=== PATIENT | female | born 2005 | race Caucasian/White ===

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

== ENCOUNTER → 2023-02-03 | Outpatient (CLI) | payer OTHER ==
[~2023-02-03] MED LIST changes: +HYDHCL25 PO; +PRED10 PO
[2023-02-03 14:56] LABS: Protein, Urine Random 59.9 mg/dL (0.0-11.9); Protein/Creat Ratio, Ur Random 0.2
== END | disposition home or self-care (01) ==
LOC: LAB 12:00 → LAB SHORT 12:00
PROVIDERS: Family Medicine
DX: O09.893 Supervision of other high risk pregnancies, third trimester (principal)
CPT/HCPCS: 82570; 84156; 87081; 87086; 87150

== ENCOUNTER 2023-02-10 06:36 | Inpatient (IN) | payer OTHER ==
[~2023-02-10] VITALS: Ht 175.3 cm; Wt 92.7 kg
[2023-02-10] VITALS (35 sets, daily range): BP systolic 98–164; BP diastolic 57–103
[2023-02-10 09:38] LABS: BASOPHILS ABSOLUTE AUTO 0.04 K/mm3 (0.00-0.23); BASOPHILS PERCENT AUTO 0 % (0-2); EOSINOPHILS ABSOLUTE AUTO 0.02 K/mm3 (0.00-0.68); EOSINOPHILS PERCENT AUTO 0 % (0-6); Hematocrit 36.7 % (33.0-51.0); Hemoglobin 12.8 g/dL (11.5-16.0); IMMATURE GRAN ABSOLUTE AUTO 0.19 K/mm3 (0.00-0.10); IMMATURE GRAN PERCENT AUTO 1 % (0-1); LYMPHOCYTES ABSOLUTE AUTO 1.36 K/mm3 (0.84-5.20); LYMPHOCYTES PERCENT AUTO 8 % (21-46); MONOCYTES ABSOLUTE AUTO 0.93 K/mm3 (0.16-1.47); MONOCYTES PERCENT AUTO 6 % (4-13); Mean Corpuscular HGB 30.9 pg (26.0-34.0); Mean Corpuscular HGB Conc 34.9 g/dL (31.5-36.5); Mean Corpuscular Volume 89 fL (80-100); NEUTROPHILS ABSOLUTE AUTO 14.06 K/mm3 (1.96-9.15); NEUTROPHILS PERCENT AUTO 85 % (41-73); Platelet Count 250 K/mm3 (150-400); RDW Coefficient Variation 13.4 % (11.7-14.2); RDW Standard Deviation 43.7 fL (35.1-46.3); Red Blood Cell Count 4.14 M/mm3 (3.80-5.20)
[2023-02-10] MEDS ORDERED: ASPIR 8181 M1 PO (09:49)
[2023-02-10] MEDS ORDERED: SERT100 PO (09:49)
[2023-02-10] MEDS ORDERED: PRENATAL TABLE1 EAC2 PO (09:49)
--- NOTE | 2023-02-10 10:00 | NUR ---
ADOPTION- AT THIS TIME THIS IS PLANNED FOR AN OPEN ADOPTION. ADOPTIVE PARENTS ARE BOTH ER DOCTORS FROM [place] AND ON THEIR WAY. PT STEP MOTHER IS HER SUPPORT PERSON AT BEDSIDE NOW AND SAYS THEY DONT HAVE ANY PAPERWORK YET BUT [employer] ARE SUPPOSE TO BE SENDING IT TODAY SINCE THEY HAVENT REVIEWED IT YET. MOTHER STATES [place]ER[place] MAY END UP CHANGING HER MIND SO JUST SEEING HOW THINGS GO ONCE THIS BABY IS DELIVERED. UNSURE IF SHE WANTS TO BREASTFEED BUT DOES PLAN TO HAVE THE BABY SKIN TO SKIN AT DELIVERY.
[2023-02-11 05:05] VITALS: BP 115/59
[2023-02-11 05:05] LABS: Hematocrit 25.4 % (33.0-51.0); Mean Corpuscular HGB 31.4 pg (26.0-34.0); Mean Corpuscular HGB Conc 35.4 g/dL (31.5-36.5); Mean Corpuscular Volume 89 fL (80-100); Mean Platelet Volume 10.6 fL (9.1-12.4); Platelet Count 215 K/mm3 (150-400); RDW Coefficient Variation 13.4 % (11.7-14.2); RDW Standard Deviation 43.6 fL (35.1-46.3); Red Blood Cell Count 2.87 M/mm3 (3.80-5.20); White Blood Cell Count 21.64 K/mm3 (4.00-11.30)
[2023-02-11 05:58] LABS: International Normalized Ratio 0.9; Prothrombin Time Results 9.5 Sec (9.7-11.5)
[2023-02-11 10:52] VITALS: BP 99/58
[2023-02-11 12:00] VITALS: BP 113/56
[2023-02-11 15:36] VITALS: BP 126/70
--- NOTE | 2023-02-11 18:48 | NUR ---
Pt resting comfortably, adoptive parents have been in room w/nb most of time since out to room from nursery. Pt has held nb a couple time and attempted to feed. Pt denies additional needs at this time, going to try to nap.
[2023-02-11 19:47] VITALS: BP 119/55
[2023-02-12 00:48] VITALS: BP 121/69
[2023-02-12 07:52] VITALS: BP 125/61
[2023-02-12 13:56] VITALS: BP 125/74
== END 2023-02-12 14:15 | disposition home or self-care (01) | DRG 797 ==
LOC: BC 06:36 → OBS 06:36 → BC 06:40 → OBS 09:12 → BC 09:13
PROVIDERS: ADMIT Family Medicine
PROC: 10E0XZZ Delivery of Products of Conception, External Approach (ICD-10-PCS; principal; 2023-02-10)
PROC: 10D17ZZ Extraction of Products of Conception, Retained, Via Natural or Artificial Opening (ICD-10-PCS; 2023-02-10)
PROC: 0KQM0ZZ Repair Perineum Muscle, Open Approach (ICD-10-PCS; 2023-02-10)
PROC: 10907ZC Drainage of Amniotic Fluid, Therapeutic from Products of Conception, Via Natural or Artificial Opening (ICD-10-PCS; 2023-02-10)
DX: O99.824 Streptococcus B carrier state complicating childbirth (principal); F31.31 Bipolar disorder, current episode depressed, mild; Z37.0 Single live birth; I67.6 Nonpyogenic thrombosis of intracranial venous system; O99.344 Other mental disorders complicating childbirth; O77.0 Labor and delivery complicated by meconium in amniotic fluid; O99.42 Diseases of the circulatory system complicating childbirth; O70.1 Second degree perineal laceration during delivery; O90.81 Anemia of the puerperium; O72.2 Delayed and secondary postpartum hemorrhage; Z3A.37 37 weeks gestation of pregnancy; Z79.82 Long term (current) use of aspirin; Z88.8 Allergy status to other drugs, medicaments and biological substances
CPT/HCPCS: 36415; 51702; 59025; 85025; 85027; 85384; 85610; 85730; 86850; 86900; 86901; 86923; A9270; J0290; J1885; J2210; J2405; J3010; J7120

== ENCOUNTER → 2023-04-07 | Outpatient (CLI) | payer OTHER ==
[~2023-04-07] MED LIST changes: +ASPIR 8181 M1 PO; +PRENATAL TABLE1 EAC2 PO; +SERT100 PO
[2023-04-08 11:18] LABS: Candida species (DNA Probe) Negative (NEGATIVE); G. vaginalis (DNA Probe) Negative (NEGATIVE); T. vaginalis (DNA Probe) Negative (NEGATIVE)
[2023-04-10 21:11] LABS: APTIMA MEDIA TYPE Unisex Swab; C. TRACHOMATIS BY TMA Negative (Negative); N. GONORRHOEAE BY TMA Negative (Negative); SPECIMEN SOURCE Cervical; T. VAGINALIS BY TMA Negative (Negative)
== END ==
LOC: LAB SHORT 15:30 → LAB 15:30
PROVIDERS: Family Medicine
DX: N89.8 Other specified noninflammatory disorders of vagina (principal)
CPT/HCPCS: 87480; 87491; 87510; 87591; 87660; 87661

== ENCOUNTER 2024-10-27 08:40 | Emergency (ER) | payer OTHER ==
[~2024-10-27] VITALS: Ht 175.3 cm; Wt 68.0 kg
[2024-10-27 08:49] VITALS: BP 109/73
[2024-10-27] MEDS ORDERED: SERT100 PO (09:34)
== END 2024-10-27 09:46 | disposition home or self-care (01) ==
LOC: ER 08:40
DX: S83.92XA Sprain of unspecified site of left knee, initial encounter (principal); Z76.0 Encounter for issue of repeat prescription; G43.909 Migraine, unspecified, not intractable, without status migrainosus; X58.XXXA Exposure to other specified factors, initial encounter; Z79.899 Other long term (current) drug therapy; Z88.1 Allergy status to other antibiotic agents
CPT/HCPCS: 73562-LT; 99283-25

== ENCOUNTER 2024-11-28 18:09 | Emergency (ER) | payer OTHER ==
[~2024-11-28] VITALS: Ht 175.3 cm; Wt 72.6 kg
[2024-11-28 18:15] VITALS: BP 118/84
[2024-11-28] MEDS ORDERED: SERT100 PO (19:14)
== END 2024-11-28 19:28 | disposition home or self-care (01) ==
LOC: ER 18:09
DX: S46.002A Unspecified injury of muscle(s) and tendon(s) of the rotator cuff of left shoulder, initial encounter (principal); X58.XXXA Exposure to other specified factors, initial encounter; Z76.0 Encounter for issue of repeat prescription; F31.9 Bipolar disorder, unspecified; Z88.8 Allergy status to other drugs, medicaments and biological substances; Z79.899 Other long term (current) drug therapy
CPT/HCPCS: 73030; 99283-25